=== PATIENT | male | born 1990 | race Caucasian/White ===

== ENCOUNTER 2018-07-17 19:42 | Emergency (ER) | payer BC ==
[2018-07-17 19:59] VITALS: BP 168/89; PULSE 83; TEMP 98.1; BMI 29.0
--- NOTE | 2018-07-17 20:00 | PDOC ---
Rapid Medical Evaluation Chief Complaint: Pain Time Seen by Provider: 07/17/18 19:54 Medical Evaluation: Allergies Allergy/AdvReac Type Severity Reaction Status Date / Time No Known Allergies Allergy Verified 02/08/16 21:14 07/17/18 19:56 I have performed a brief in-person evaluation of this patient. The patient presents with a chief complaint of:rlq PAIN X 2 DAYS, INTERMITTANT , went to [facility] for eval and was sent here for eval of Abd and possible Appy Pertinent physical exam findings: pale , no tenderness./ rebound/ guarding I have ordered the following: UA The patient will proceed to the ED for further evaluation. 07/17/18 19:56
--- NOTE | 2018-07-17 21:29 | PDOC ---
History of Present Illness - History of Present Illness Initial Comments: 07/17/18 21:29 The patient is a 28 year old male, with no past medical history, who presents to the emergency department with right upper abdominal pain and right flank pain for about 3 days. The patient states he developed 5/10, intermittent pain which is localized to his right upper quadrant and right lateral ribs. He reports pain exacerbation with palpation of his right upper quadrant just under her ribs. He denies any injury or trauma. 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 He does report doing push-ups yesterday, but states the right upper abdominal pain was already present. He states he went to urgent care prior to ED arrival where he was found to have right lower quadrant tenderness on exam with concern for appendicitis. The patient, however, reportedly urinated upon ED arrival and denies any right lower abdominal pain. He denies any other exacerbating or alleviating factors of pain. He denies use of OTC medications for pain. He denies any other complaints. The patient denies chest pain, shortness of breath, headache and dizziness. The patient denies fever, chills, nausea, vomit, diarrhea and constipation. The patient denies dysuria, frequency, urgency and hematuria. Allergies: NKDA Past surgical history: none reported Social Hx: denies ETOH or tobacco use <Becky Simeon - Last Filed: 07/17/18 21:29> - General History Source: Patient Exam Limitations: No Limitations <Negra Lucas - Last Filed: 07/17/18 22:31> - General Chief Complaint: Pain Stated Complaint: ABDOMINAL PAIN Time Seen by Provider: 07/17/18 19:54 Past History <Becky Simeon - Last Filed: 07/17/18 21:29> - Past Medical History COPD: No - Suicide/Smoking/Psychosocial Hx Smoking History: Never smoked Have you smoked in the past 12 months: No Information on smoking cessation initiated: No Hx Alcohol Use: No Drug/Substance Use Hx: No Substance Use Type: None <Negra Lucas - Last Filed: 07/17/18 22:31> - Past Medical History Allergies/Adverse Reactions: Allergies Allergy/AdvReac Type Severity Reaction Status Date / Time No Known Allergies Allergy Verified 07/17/18 19:59 Home Medications: Ambulatory Orders Betamethasone Dipropionate [Diprosone 0.05% Ointment -] 1 applic TP DAILY #1 tube 02/08/16 Review of Systems - Review of Systems Able to Perform ROS?: Yes Comments:: 07/17/18 21:29 CONSTITUTIONAL: Absent: fever, no chills, no fatigue EYES: Absent: visual changes ENT: Absent: ear pain, no sore throat CARDIOVASCULAR: Absent: chest pain, no palpitations RESPIRATORY: Absent: cough, no SOB GASTROINTESTINAL: (+) right upper abdominal pain, Absent: no nausea, no vomiting, no constipation , no diarrhea GENITOURINARY: Absent: dysuria, no frequency, no hematuria MUSCULOSKELETAL: Absent: back pain, no arthralgia, no myalgia SKIN: Absent: rash NEURO: Absent: headache <Becky Simeon - Last Filed: 07/17/18 21:29> *Physical Exam - Vital Signs Last Vital Signs Temp Pulse Resp BP Pulse Ox 98.1 F 83 18 168/89 100 07/17/18 19:56 07/17/18 19:56 07/17/18 19:56 07/17/18 19:56 07/17/18 19:56 - Physical Exam Comments: 07/17/18 21:29 GENERAL: The patient is in no acute distress. HEAD: Normal with no signs of trauma. EYES: PERRLA, EOMI, sclera anicteric, conjunctiva clear. ENT: Ears normal, nares patent, oropharynx clear without exudates. Moist mucous membranes. NECK: Normal range of motion, supple without lymphadenopathy, JVD, or masses. LUNGS: Breath sounds equal, clear to auscultation bilaterally. No wheezes, and no crackles. HEART:Regular rate and rhythm, normal S1 and S2 without murmur, rub or gallop. ABDOMEN: (+) mild RUQ tenderness on palpation. No reproducible lower abdominal tenderness. Soft, normoactive bowel sounds. No guarding, no rebound. No masses palpable. EXTREMITIES: Normal range of motion, no edema. No clubbing or cyanosis. No erythema, or tenderness. NEUROLOGICAL: Cranial nerves II through XII grossly intact. Normal speech. No focal neurological deficits. MUSCULOSKELETAL: Back non-tender to palpation, no CVA tenderness SKIN: Warm, Dry, normal turgor, no rashes or lesions noted. <Becky Simeon - Last Filed: 07/17/18 21:29> - Vital Signs Last Vital Signs Temp Pulse Resp BP Pulse Ox 98.1 F 83 18 168/89 100 07/17/18 19:56 07/17/18 19:56 07/17/18 19:56 07/17/18 19:56 07/17/18 19:56 <Negra Lucas - Last Filed: 07/17/18 22:31> Moderate Sedation - Procedure Monitoring Vital Signs: Procedure Monitoring Vital Signs Temperature 98.1 F 07/17/18 19:56 Pulse Rate 83 07/17/18 19:56 Respiratory Rate 18 07/17/18 19:56 Blood Pressure 168/89 07/17/18 19:56 O2 Sat by Pulse Oximetry (%) 100 07/17/18 19:56 <Becky Simeon - Last Filed: 07/17/18 21:29> - Procedure Monitoring Vital Signs: Procedure Monitoring Vital Signs Temperature 98.1 F 07/17/18 19:56 Pulse Rate 83 07/17/18 19:56 Respiratory Rate 18 07/17/18 19:56 Blood Pressure 168/89 07/17/18 19:56 O2 Sat by Pulse Oximetry (%) 100 07/17/18 19:56 <Negra Lucas - Last Filed: 07/17/18 22:31> Medical Decision Making - Medical Decision Making 07/17/18 21:34 Mr Montoya is an otherwise healthy 28 yo M sent in to the ER for evaluation of abdominal pain He has noted Right upper abdominal pain which he describes as painful These symptoms began 3 days prior to arrival in the ER No associated fevers or chills No nausea, vomiting, diarrhea No chest pain No shortness of breath, recent travel, lower extremity edema No prior episodes like this No direct trauma to the area No rash Pt works in [employer], lifts heavy things all the time Does not recall doing any thing particularly strenuous Pt went to the Urgent care because the pain had not resolved (he has not tried anti inflammatories) and was sent to the ER for evaluation for appendicitis Pt tells me that when the doctor examined him at the urgent care, he had right lower abdominal tenderness Upon arrival to the ER here, he urinated and noted that his abdominal pain resolved No dysuria No hematuria No CVA tenderness Pain worsens when patient slightly bends to the right or the area in the right upper abdomen is palpated ON examination A&O x 3 RRR CTA, pt has normal breath sounds bilaterally, no diminished lower breath sounds NO lower abdominal tenderness, no guarding, no rebound Pt has right side tenderness, no guarding no rebound, Lion sign negative No CVA tenderness Pt is able to jump with no difficulty or pain No rash noted No midline spine tenderness DD includes: biliary colic, renal colic, musculoskeletal pain, appendicitis is possible but unlikely, PE Would do Labs, CT abd and pelvis I have had a long conversation with this patient regarding my suspicion about appendicitis (low but it is still technically possible) The only way to rule it out is labs and CT Pt not inclined to stay for any additional work up We have had a long conversation about what to look out for - systemic signs of illness, abdominal pain, the possibility of a ruptured appendicitis and what the outcome would be from this. We have also reviewed the other causes of his symptoms (including biliary colic , renal colic, musculoskeletal pain) We have reviewed a possible strategy of patient starting motrin for pain and re assessing his symptoms Pt would prefer to do this than to be worked up here today Will schedule patient for a follow up call tomorrow Pt has seen Dr Madrigal in the past, would prefer to follow up with her <Negra Lucas - Last Filed: 07/17/18 22:31> *DC/Admit/Observation/Transfer - Attestations Scribe Attestion: 07/17/18 21:30 Documentation prepared by Becky Simeon, acting as medical transcription radiology for Negra Lucas MD <Becky Simeon - Last Filed: 07/17/18 21:29> - Discharge Dispostion Decision to Admit order: No <Negra Lucas - Last Filed: 07/17/18 22:31> Diagnosis at time of Disposition: Abdominal pain Qualifiers: Abdominal location: right upper quadrant Qualified Code(s): R10.11 - Right upper quadrant pain - Discharge Dispostion Disposition: HOME Condition at time of disposition: Stable - Patient Instructions Printed Discharge Instructions: DI for Abdominal Pain-Adult Additional Instructions: Mr Montoya Thank you for coming in to the ER today I understand your hesitation to be worked up in the ER right now Here's what I want you to look out for - fevers, chill, nausea, vomiting, inability to eat, diarrhea, pain that does not go away and/or worsens, shortness of breath, or chest pain. IF you have those symptoms, come back to the ER. We want to see you again. Her's what we can try for now - Motrin 600mg every 8 hours (with food or milk) for pain, Robaxin You can follow up with your primary care physician within 1 week if things improve Thank you for allowing us to participate in your care - Post Discharge Activity Forms/Work/School Notes: Back to Work
== END 2018-07-17 21:47 | disposition home or self-care (01) ==
LOC: JER 19:42
DX: R10.11 Right upper quadrant pain (principal)
CPT/HCPCS: 99281-25

== ENCOUNTER 2019-01-29 17:18 | Emergency (ER) | payer BC ==
--- NOTE | 2019-01-29 17:33 | PDOC ---
Rapid Medical Evaluation Time Seen by Provider: 01/29/19 17:26 Medical Evaluation: Allergies Allergy/AdvReac Type Severity Reaction Status Date / Time No Known Allergies Allergy Verified 07/17/18 19:59 01/29/19 17:27 Patient complains of: headache and palpitations since this afternoon, episodic anxiety, denies fever drug use Patient on brief exam: tachy at 140, Patient ordered for: labs, ekg,ivf, ua, utox, iv tylenol Patient to proceed to the ED Discharge Disposition - Diagnosis Palpitation - Discharge Dispostion Disposition: HOME Condition at time of disposition: Improved - Referrals Referrals: Indira Madrigal MD [Primary Care Provider] - - Patient Instructions Printed Discharge Instructions: DI for Anxiety -- Adult Additional Instructions: The cause of your symptoms might be anxiety related but you need further evaluation by your PMD You labs were all normal today Return to ED as needed - Post Discharge Activity
[2019-01-29] MEDS ORDERED: SODIUM CHLORIDE 1,000 ML IV STA (17:34)
[2019-01-29] MEDS ORDERED: ACETAMINOPHEN 1000 MG/100 ML VIAL (NON FORMULARY) IVPB ONE (17:34)
[2019-01-29 17:36] VITALS: BMI 28.9
--- NOTE | 2019-01-29 17:49 | PDOC ---
History of Present Illness - General Chief Complaint: Palpitations Stated Complaint: PALPITATIONS Time Seen by Provider: 01/29/19 17:26 History Source: Patient - History of Present Illness Timing/Duration: other (this evening) Associated Symptoms: denies: chest pain, diaphoresis, fever/chills, nausea/ vomiting, shortness of breath, weakness Past History - Past Medical History Allergies/Adverse Reactions: Allergies Allergy/AdvReac Type Severity Reaction Status Date / Time No Known Allergies Allergy Verified 07/17/18 19:59 Home Medications: Ambulatory Orders Betamethasone Dipropionate [Diprosone 0.05% Ointment -] 1 applic TP DAILY #1 tube 02/08/16 COPD: No - Suicide/Smoking/Psychosocial Hx Smoking History: Never smoked Have you smoked in the past 12 months: No Information on smoking cessation initiated: No Hx Alcohol Use: No Drug/Substance Use Hx: No Substance Use Type: None Review of Systems - Review of Systems Constitutional: No: Chills, Fever Respiratory: No: Shortness of Breath Cardiac (ROS): Yes: Palpitations. No: Chest Pain, Lightheadedness, Syncope *Physical Exam - Vital Signs Last Vital Signs Temp Pulse Resp BP Pulse Ox 97.9 F 140 H 17 163/90 98 01/29/19 17:30 01/29/19 17:30 01/29/19 17:30 01/29/19 17:30 01/29/19 17:30 - Physical Exam Comments: 01/29/19 18:08 appears mildly anxious General Appearance: Yes: Appropriately Dressed HEENT: positive: Normal Voice Neck: positive: Supple Respiratory/Chest: positive: Lungs Clear, Normal Breath Sounds. negative: Respiratory Distress Cardiovascular: positive: S1, S2 Gastrointestinal/Abdominal: positive: Normal Bowel Sounds, Soft. negative: Tender, Distended, Guarding, Rebound Integumentary: positive: Dry, Warm Neurologic: positive: Fully Oriented, Alert, Normal Mood/Affect Medical Decision Making - Medical Decision Making 01/29/19 17:48 28-year-old healthy male, no significant history here with palpitations that started this afternoon while sitting home with his family. States he also felt anxious at the time. Symptoms have since improved. No shortness of breath, chest pain, numbness or tingling. Has had similar symptom in the past that self resolved. Describes himself as a nervous person and admits to feeling stressed out at home. Also admits to constantly googling his symptoms. No official diagnosis of anxiety and not on meds. No SI/HI. Patient denies any illicit drug use. No obvious risk factors for DVT, PE. Of note, patient states he is currently being worked up by PMD for lower abdominal pain that's been on and off x several days. No pain currently in ED and denies change in BM , n/v/f/c or dysuria. Lab work this am was normal on chart review. States he is scheduled to see a optimization consultant in the a.m. and also has CT abdomen and pelvis scheduled in 2 days. See exam Palpitations Recurrent ? anxiety component, very low suspicion for cardiac or PE Out-pt labs this am for intermittent abd pain, normal on chart review including TSH, CBC and Chem Pt tachy to 140 at triage and appears very anxious here EKG done at triage shows sinus tachy @ 108 BPM -pt offered anxiolytic in ER but declines at this time -will send dimer and utox now -anticipate dc w/ PMD and possibly cards f/u 01/29/19 19:10 Labs wnl. Rpt HR now 101 with no intervention. Pt declines to wait for utox. Feels well going home to f/u with PMD this week *DC/Admit/Observation/Transfer Diagnosis at time of Disposition: Palpitation - Discharge Dispostion Disposition: HOME Condition at time of disposition: Improved - Referrals Referrals: Indira Madrigal MD [Primary Care Provider] - - Patient Instructions Printed Discharge Instructions: DI for Anxiety -- Adult Additional Instructions: The cause of your symptoms might be anxiety related but you need further evaluation by your PMD You labs were all normal today Return to ED as needed - Post Discharge Activity
[2019-01-29 18:45] VITALS: BP 145/74; PULSE 101; TEMP 98.6
--- NOTE | 2019-01-29 19:23 | PDOC ---
*Physical Exam - Vital Signs Last Vital Signs Temp Pulse Resp BP Pulse Ox 98.6 F 101 H 16 145/74 99 01/29/19 18:44 01/29/19 18:44 01/29/19 18:44 01/29/19 18:44 01/29/19 18:44 ED Treatment Course - ADDITIONAL ORDERS Additional order review: Laboratory Results 01/29/19 01/29/19 18:00 18:00 D-Dimer 235 Creatine Kinase 94 Troponin I < 0.02 - Medications Given in the ED: ED Medications Discontinued Medications Generic Name Dose Route Start Last Admin Trade Name Jamar PRN Reason Stop Dose Admin Acetaminophen 1,000 mg 01/29/19 17:34 01/29/19 18:44 Ofirmev Injection - IVPB 01/29/19 17:35 Not Given ONCE ONE Sodium Chloride 1,000 mls @ 1,000 mls/hr 01/29/19 17:34 01/29/19 18:44 Normal Saline - IV 01/29/19 18:33 Not Given ASDIR STA Medical Decision Making - Medical Decision Making 01/29/19 19:23 Pt seen by Midlevel Provider under my direct supervision Ancillary studies reviewed I agree with plan as outlined by Midlevel Provider *DC/Admit/Observation/Transfer Diagnosis at time of Disposition: Palpitation - Discharge Dispostion Disposition: HOME Condition at time of disposition: Improved - Referrals Referrals: Indira Madrigal MD [Primary Care Provider] - - Patient Instructions Printed Discharge Instructions: DI for Anxiety -- Adult Additional Instructions: The cause of your symptoms might be anxiety related but you need further evaluation by your PMD You labs were all normal today Return to ED as needed - Post Discharge Activity
[2019-01-29 21:11] LABS: COCAINE, UR NEGATIVE ng/ml (CUTOFF=300); METHADONE, UR NEGATIVE ng/ml (CUTOFF=300); OPIATES, URI NEGATIVE ng/ml (CUTOFF=300); PHENCYCLIDINE,URINE NEGATIVE ng/ml (CUTOFF=25); URINE AMPHETAMINES NEGATIVE ng/ml (CUTOFF=500); URINE BARBITURATES NEGATIVE ng/ml (CUTOFF=200); URINE BENZODIAZEPINES NEGATIVE ng/ml (CUTOFF=200)
--- NOTE | 2019-01-30 08:07 | EKG ---
Test Reason : Blood Pressure : / mmHG Vent. Rate : 108 BPM Atrial Rate : 108 BPM P-R Int : 170 ms QRS Dur : 106 ms QT Int : 356 ms P-R-T Axes : 047 032 033 degrees QTc Int : 477 ms SINUS TACHYCARDIA POSSIBLE LEFT ATRIAL ENLARGEMENT BORDERLINE ECG NO PREVIOUS ECGS AVAILABLE Confirmed by ROSELYN LANE, LINDA ([id number]) on 01/30/2019 8:07:17 AM Referred By: Confirmed By:LINDA DEMPSEY MD
== END 2019-01-29 19:19 | disposition home or self-care (01) ==
LOC: JER 17:18
DX: R00.2 Palpitations (principal)
CPT/HCPCS: 36415; 80053; 80076; 80307; 81003; 82550; 82977; 83036; 84439; 84443; 84484; 85027; 85379; 87086; 93005; 93010; 99282-25

== ENCOUNTER 2019-03-31 12:25 | Emergency (ER) | payer BC, OTHER ==
[2019-03-31 12:36] VITALS: BP 126/77; PULSE 83; TEMP 97.9; BMI 26.5
--- NOTE | 2019-03-31 13:21 | PDOC ---
History of Present Illness - General Chief Complaint: Sore Throat Stated Complaint: SORE THROAT / CHEST PRESSURE Time Seen by Provider: 03/31/19 12:35 - History of Present Illness Initial Comments: 03/31/19 13:21 CHIEF COMPLAINT: multiple HISTORY OF PRESENT ILLNESS: 28 yo M with hx of anxiety presents to fast track with multiple complaints. Patient reports "having to clear my throat a lot" and that he has discomfort to his left chest wall with palpation and deep breathing. He states he was recently seen by Dr. Zhong and had an endoscopy and put on famotidine. He also is concerned about "these webster on my back" after he was sitting up against a tree this weekend. No recent travel or sick contacts. PAST MEDICAL HISTORY: Denies past medical history FAMILY HISTORY: Denies SOCIAL HISTORY: Denies tobacco, alcohol, illicit drug use. SURGICAL HISTORY: Denies ALLERGIES: No known drug allergies REVIEW OF SYSTEMS General/Constitutional: Denies fever or chills. Denies weakness, weight change. HEENT: Denies change in vision. Denies ear pain or discharge. Denies sore throat. Cardiovascular: Denies chest pain or shortness of breath. Respiratory: Denies cough, wheezing, or hemoptysis. Gastrointestinal: Denies nausea, vomiting, diarrhea or constipation. Denies rectal bleeding. Genitourinary: Denies dysuria, frequency, or change in urination. Musculoskeletal: Denies joint or muscle swelling or pain. Denies neck or back pain. Skin and breasts: Denies rash or easy bruising. Neurologic: Denies headache, vertigo, loss of consciousness, or loss of sensation. Psychiatric: Denies depression or anxiety. Endocrine: Denies increased thirst. Denies abnormal weight change. Hematologic/Lymphatic: Denies anemia, easy bleeding, or history of blood clots. Allergic/Immunologic: Denies hives or skin allergy. Denies latex allergy. PHYSICAL EXAM General Appearance: Anxious. Appropriately dressed. No apparent distress, no intoxication. HEENT: EOMI, PERRLA, normal ENT inspection, normal voice, TMs normal, pharynx normal. No conjunctival pallor. No photophobia, scleral icterus. Neck: Supple. Trachea midline. No tenderness, rigidity, carotid bruit, stridor , lymphadenopathy, or thyromegaly. Respiratory/Chest: Lungs CTAB. No shortness of breath, chest tenderness, respiratory distress, accessory muscle use. No crackles, rales, rhonchi, stridor , wheezing, dullness Cardiovascular: RRR. S1, S2. No JVD, murmur, bradycardia, tachycardia. Vascular Pulses: Dorsalis-Pedis (R): 2+, Dorsalis-Pedis (L): 2+ Gastrointestinal/Abdominal: Normal bowel sounds. Abdomen soft, non-distended. No tenderness or rebound tenderness. No organomegaly, pulsatile mass, guarding , hernia, hepatomegaly, splenomegaly. Lymphatic: No adenopathy, tenderness. Musculoskeletal/Extremities: Normal inspection. FROM of all extremities, normal capillary refill. Pelvis Stable. No CVA tenderness. No tenderness to extremities, pedal edema, swelling, erythema or deformity. Integumentary: Appropriate color, dry, warm. No cyanosis, erythema, jaundice or rash Neurologic: book illustrator II-XII intact. Fully oriented, alert. Appropriate mood/affect. Motor strength 5/5. No appreciable EOM palsy, facial droop or sensory deficit. 03/31/19 13:31 03/31/19 15:32 Past History - Past Medical History Allergies/Adverse Reactions: Allergies Allergy/AdvReac Type Severity Reaction Status Date / Time No Known Allergies Allergy Verified 03/31/19 12:30 Home Medications: Ambulatory Orders Betamethasone Dipropionate [Diprosone 0.05% Ointment -] 1 applic TP DAILY #1 tube 02/08/16 Hydroxyzine HCl 25 mg PO TID PRN #20 tablet 03/31/19 Ibuprofen [Motrin -] 600 mg PO TID #21 tablet 03/31/19 COPD: No - Immunization History Immunization Up to Date: Yes - Suicide/Smoking/Psychosocial Hx Smoking History: Never smoked Have you smoked in the past 12 months: No Hx Alcohol Use: No Drug/Substance Use Hx: No Substance Use Type: None *Physical Exam - Vital Signs Last Vital Signs Temp Pulse Resp BP Pulse Ox 97.9 F 83 18 126/77 99 03/31/19 12:31 03/31/19 12:31 03/31/19 12:31 03/31/19 12:31 03/31/19 12:31 Medical Decision Making - Medical Decision Making 03/31/19 13:33 28 yo M with hx of anxiety presents to fast track with multiple complaints. patient is very anxious appearing and states "i'm an anxious person" and that he has been googling his symptoms a lot -hydroxyzine *DC/Admit/Observation/Transfer Diagnosis at time of Disposition: Anxiety - Discharge Dispostion Disposition: HOME Condition at time of disposition: Stable Decision to Admit order: No - Prescriptions Prescriptions: Hydroxyzine HCl 25 mg PO TID PRN #20 tablet PRN Reason: Anxiety Ibuprofen [Motrin -] 600 mg PO TID #21 tablet - Referrals Referrals: Callie Garza MD [Primary Care Provider] - - Patient Instructions Printed Discharge Instructions: DI for Anxiety -- Adult Additional Instructions: Please take medications as prescribed. Follow up with your primary care provider if symptoms persist. - Post Discharge Activity
[2019-03-31] MEDS ORDERED: hydrOXYzine HCL 50 MG TABLET PO ONE (13:31)
[2019-03-31] MEDS ORDERED: hydrOXYzine HCL 25 MG TABLET (FP) PO ONE (13:37)
== END 2019-03-31 13:41 | disposition home or self-care (01) ==
LOC: JERFT 12:25
DX: F41.9 Anxiety disorder, unspecified (principal)
CPT/HCPCS: 99281-25

== ENCOUNTER 2019-05-06 20:34 | Emergency (ER) | payer BC ==
[2019-05-06 20:37] VITALS: BP 134/87; PULSE 103; TEMP 97.9; BMI 26.6
--- NOTE | 2019-05-06 22:29 | PDOC ---
History of Present Illness - General Chief Complaint: Chest Pain Stated Complaint: CHEST PAIN Time Seen by Provider: 05/06/19 22:21 History Source: Patient - History of Present Illness Initial Comments: 05/06/19 22:23 28 year old male c/o chest pain " for awhile" seen by Dr. Garza s/p stress showed slight St depression of the lateral leads with activity. had a normal echo recently. patient reports that he is nervous about the change and was looking up causes on the internet. denies nausea, diaphoresis, weakness denies past medical history, no sudden deaths in family, EOE Past History - Past Medical History Allergies/Adverse Reactions: Allergies Allergy/AdvReac Type Severity Reaction Status Date / Time No Known Allergies Allergy Verified 05/06/19 20:36 Home Medications: Ambulatory Orders Betamethasone Dipropionate [Diprosone 0.05% Ointment -] 1 applic TP DAILY #1 tube 02/08/16 Hydroxyzine HCl 25 mg PO TID PRN #20 tablet 03/31/19 Ibuprofen [Motrin -] 600 mg PO TID #21 tablet 03/31/19 COPD: No - Immunization History Immunization Up to Date: Yes - Suicide/Smoking/Psychosocial Hx Smoking History: Never smoked Have you smoked in the past 12 months: No Hx Alcohol Use: No Drug/Substance Use Hx: No Substance Use Type: None Review of Systems - Review of Systems Able to Perform ROS?: Yes Is the patient limited Thai proficient: No Constitutional: No: Symptoms Reported, See HPI, Chills, Diaphoresis, Fever, Loss of Appetite, Malaise, Night Sweats, Weakness, Weight Stable, Unintentional Wgt. Loss, Unexplained wgt Loss, Other Cardiac (ROS): Yes: Chest Pain *Physical Exam - Vital Signs Last Vital Signs Temp Pulse Resp BP Pulse Ox 97.9 F 103 H 18 134/87 97 05/06/19 20:36 05/06/19 20:36 05/06/19 20:36 05/06/19 20:36 05/06/19 20:36 - Physical Exam General Appearance: Yes: Appropriately Dressed Respiratory/Chest: positive: Chest Tender, Lungs Clear, Normal Breath Sounds Cardiovascular: positive: Regular Rhythm, Regular Rate Gastrointestinal/Abdominal: positive: Normal Bowel Sounds, Soft. negative: Tender Integumentary: positive: Normal Color, Dry, Warm Neurologic: positive: advertising sales manager II-XII NML intact, Fully Oriented, Alert, Normal Mood/ Affect Heart Score/ECG Review - History History: Slightly suspicious - Electrocardiogram EKG: Normal - Age Age: </= 45 - Risk Factors Based on the list above the patient has:: No risk factors known - Troponin Troponin: </= normal limit - Score Heart Score - Total: 0 - ECG Intrepretation Rhythm: Regular Rhythm Comment:: 05/07/19 00:24 possible sinus rhythm with sinus arrythmia ED Treatment Course - LABORATORY CBC & Chemistry Diagram: 05/06/19 23:20 05/06/19 23:20 - ADDITIONAL ORDERS Additional order review: Laboratory Results 05/06/19 05/06/19 05/06/19 23:20 23:20 23:20 PT with INR 12.80 INR 1.08 Sodium 141 Potassium 3.8 Chloride 104 Carbon Dioxide 31 Anion Gap 7 L BUN 18.9 H Creatinine 0.9 Est GFR (CKD-EPI)AfAm 133.30 Est GFR (CKD-EPI)NonAf 115.01 Random Glucose 93 Calcium 9.7 Total Bilirubin 0.9 AST 16 ALT 32 Alkaline Phosphatase 52 Creatine Kinase 70 Troponin I < 0.02 Total Protein 7.7 Albumin 4.4 05/06/19 23:20 RBC 5.37 MCV 88.9 MCHC 34.2 RDW 12.8 MPV 8.6 Neutrophils % 69.7 Lymphocytes % 22.1 Monocytes % 6.1 Eosinophils % 1.3 Basophils % 0.8 - RADIOLOGY Radiology Studies Ordered: Category Date Time Status CHEST PA & LAT [RAD] Stat Radiology 05/06/19 22:38 Taken Medical Decision Making - Medical Decision Making Chest pain P: labs chest xray cardiac labs 05/07/19 00:31 patient has an appointment with cardiology tomorrow. no acute findings *DC/Admit/Observation/Transfer Diagnosis at time of Disposition: Atypical chest pain - Discharge Dispostion Disposition: HOME - Referrals - Patient Instructions Printed Discharge Instructions: DI for Atypical Chest Pain Additional Instructions: please follow up with cardiology as per schedule. return to the ER for any worsening symptoms - Post Discharge Activity Forms/Work/School Notes: Back to Work
--- NOTE | 2019-05-06 22:31 | PDOC ---
*Physical Exam - Vital Signs Last Vital Signs Temp Pulse Resp BP Pulse Ox 97.9 F 103 H 18 134/87 97 05/06/19 20:36 05/06/19 20:36 05/06/19 20:36 05/06/19 20:36 05/06/19 20:36 ED Treatment Course - LABORATORY CBC & Chemistry Diagram: 05/06/19 23:20 05/06/19 23:20 Medical Decision Making - Medical Decision Making 05/06/19 22:30 Patient seen by the advanced practice provider under my direct supervision. Ancillary testing reviewed as necessary. I agree with plan as outlined by the advanced practice provider. *DC/Admit/Observation/Transfer Diagnosis at time of Disposition: Atypical chest pain - Discharge Dispostion Disposition: HOME - Referrals - Patient Instructions Printed Discharge Instructions: DI for Atypical Chest Pain Additional Instructions: please follow up with cardiology as per schedule. return to the ER for any worsening symptoms - Post Discharge Activity Forms/Work/School Notes: Back to Work
[2019-05-06 23:33] LABS: BASO % 0.8 % (0-2.0); EOS % 1.3 % (0-4.5); HEMATOCRIT 47.7 % (35.4-49); HEMOGLOBIN 16.3 GM/dL (11.7-16.9); LYMPH % 22.1 % (8-40); MCH 30.4 pg (25.7-33.7); MCHC 34.2 g/dl (32.0-35.9); MEAN CELL VOLUME 88.9 fl (80-96); MEAN PLT VOLUME 8.6 fl (7.5-11.1); MONO % 6.1 % (3.8-10.2); NEUT % 69.7 % (42.8-82.8); PLATELET COUNT 204 K/MM3 (134-434); RBC 5.37 M/mm3 (4.00-5.60); RDW 12.8 % (11.9-15.9); WHITE BLOOD COUNT 9.2 K/mm3 (4.0-10.0)
[2019-05-06 23:47] LABS: INR 1.08 (0.83-1.09); PROTHROMBIN TIME (PATIENT) 12.8 SEC (9.7-13.0)
[2019-05-06 23:53] LABS: ALBUMIN 4.4 g/dl (3.4-5.0); BILIRUBIN,TOTAL 0.9 mg/dL (0.2-1); BLOOD UREA NITROGEN 18.9 mg/dL (7-18); CALCIUM 9.7 mg/dL (8.5-10.1); CREATININE 0.9 mg/dL (0.55-1.3); POTASSIUM 3.8 mmol/L (3.5-5.1); TOT PROT 7.7 g/dl (6.4-8.2)
--- NOTE | 2019-05-07 10:58 | EKG ---
Test Reason : Blood Pressure : / mmHG Vent. Rate : 099 BPM Atrial Rate : 099 BPM P-R Int : 158 ms QRS Dur : 100 ms QT Int : 354 ms P-R-T Axes : 066 056 048 degrees QTc Int : 454 ms NORMAL SINUS RHYTHM WITH SINUS ARRHYTHMIA POSSIBLE LEFT ATRIAL ENLARGEMENT BORDERLINE ECG WHEN COMPARED WITH ECG OF 29-JAN-2019 17:35, NO SIGNIFICANT CHANGE WAS FOUND Confirmed by Quang Rojas ([id number]) on 05/07/2019 10:58:15 AM Referred By: Confirmed By:Quang Rojas
== END 2019-05-07 01:05 | disposition home or self-care (01) ==
LOC: JER 20:34 → JERFT 20:34 → JER 05-07 01:05
DX: R07.9 Chest pain, unspecified (principal)
CPT/HCPCS: 36415; 71046-TC-FY; 80053; 82550; 84484; 85025; 85610; 93005; 93010; 99283-25

== ENCOUNTER 2019-08-13 12:24 | Emergency (ER) | payer BC ==
[2019-08-13 12:39] VITALS: TEMP 98.5; BMI 26.6
[2019-08-13] MEDS ORDERED: SODIUM CHLORIDE 1,000 ML IV STA (13:05)
[2019-08-13 14:15] VITALS: BP 137/75; PULSE 103
[2019-08-13 14:28] LABS: ALBUMIN 4.4 g/dl (3.4-5.0); BILIRUBIN,TOTAL 1.6 mg/dL (0.2-1); BLOOD UREA NITROGEN 13.9 mg/dL (7-18); CALCIUM 9.8 mg/dL (8.5-10.1); CREATININE 0.7 mg/dL (0.55-1.3); POTASSIUM 4.2 mmol/L (3.5-5.1); TOT PROT 7.8 g/dl (6.4-8.2)
[2019-08-13 14:42] LABS: BASO % 0.4 % (0-2.0); EOS % 0.9 % (0-4.5); LYMPH % 15.1 % (8-40); MCH 30.4 pg (25.7-33.7); MCHC 33.9 g/dl (32.0-35.9); MEAN CELL VOLUME 89.6 fl (80-96); MEAN PLT VOLUME 8.9 fl (7.5-11.1); MONO % 5.5 % (3.8-10.2); NEUT % 78.1 % (42.8-82.8); PLATELET COUNT 224 K/MM3 (134-434); RBC 5.58 M/mm3 (4.00-5.60); RDW 12.9 % (11.9-15.9); WHITE BLOOD COUNT 9.8 K/mm3 (4.0-10.0)
--- NOTE | 2019-08-13 14:58 | PDOC ---
History of Present Illness - General Chief Complaint: Pain Stated Complaint: DIZZNESS Time Seen by Provider: 08/13/19 12:49 History Source: Patient Exam Limitations: No Limitations Past History - Travel Traveled outside of the country in the last 30 days: No Close contact w/someone who was outside of country & ill: No - Past Medical History Allergies/Adverse Reactions: Allergies Allergy/AdvReac Type Severity Reaction Status Date / Time No Known Allergies Allergy Verified 08/13/19 12:34 Home Medications: Ambulatory Orders Betamethasone Dipropionate [Diprosone 0.05% Ointment -] 1 applic TP DAILY #1 tube 02/08/16 Hydroxyzine HCl 25 mg PO TID PRN #20 tablet 03/31/19 Ibuprofen [Motrin -] 600 mg PO TID #21 tablet 03/31/19 COPD: No - Immunization History Immunization Up to Date: Yes - Psycho Social/Smoking Cessation Hx Smoking History: Never smoked Have you smoked in the past 12 months: No Information on smoking cessation initiated: No Hx Alcohol Use: No Drug/Substance Use Hx: No Substance Use Type: None Review of Systems - Review of Systems Able to Perform ROS?: Yes Comments:: 08/13/19 17:58 CONSTITUTIONAL: Absent: fever, chills, diaphoresis, generalized weakness, malaise, loss of appetite HEENT: Absent: rhinorrhea, nasal congestion, throat pain, throat swelling, difficulty swallowing, mouth swelling, ear pain, eye pain, visual Changes CARDIOVASCULAR: Absent: chest pain, loss of consciousness, palpitations, irregular heart rate, peripheral edema RESPIRATORY: Absent: cough, shortness of breath, dyspnea with exertion, orthopnea, wheezing, stridor, hemoptysis GASTROINTESTINAL: Absent: abdominal pain, abdominal distension, nausea, vomiting, diarrhea, constipation, melena, hematochezia GENITOURINARY: Absent: dysuria, frequency, urgency, hesitancy, hematuria, flank pain, genital pain MUSCULOSKELETAL: Absent: myalgia, arthralgia, joint swelling SKIN: Absent: rash, itching, pallor NEUROLOGIC: Present: dizziness Absent: headache, focal weakness or paresthesias, unsteady gait, seizure, mental status changes, bladder or bowel incontinence PSYCHIATRIC: Absent: anxiety, depression, suicidal or homicidal ideation, hallucinations. Is the patient limited Kiswahili proficient: No *Physical Exam - Vital Signs Last Vital Signs Temp Pulse Resp BP Pulse Ox 98.5 F 103 H 18 137/75 98 08/13/19 12:35 08/13/19 14:14 08/13/19 12:35 08/13/19 14:14 08/13/19 14:14 - Physical Exam 08/13/19 18:00 GENERAL: Well developed, well nourished. Awake and alert. No acute distress. HEENT: Normocephalic, atraumatic. PERRLA, EOMI. No conjunctival pallor. Sclera are non- icteric. Moist mucous membranes. Oropharynx is clear. NECK: Supple. Full ROM. No JVD. Carotid pulses 2+ and symmetric, without bruits. No thyromegaly. No lymphadenopathy. CARDIOVASCULAR: Regular rate and rhythm. No murmurs, rubs, or gallops. Distal pulses are 2+ and symmetric. PULMONARY: No evidence of respiratory distress. Lungs clear to auscultation bilaterally. No wheezing, rales or rhonchi. ABDOMINAL: Soft. Non-tender. Non-distended. No rebound or guarding. No organomegaly. Normoactive bowel sounds. MUSCULOSKELETAL Normal range of motion at all joints. No bony deformities or tenderness. No CVA tenderness. EXTREMITIES: No cyanosis. No clubbing. No edema. No calf tenderness. SKIN: Warm and dry. Normal capillary refill. No rashes. No jaundice. NEUROLOGICAL: Alert, awake, appropriate. Cranial nerves 2-12 intact. No deficits to light touch and temperature in face, upper extremities and lower extremities. No motor deficits in the in face, upper extremities and lower extremities. Normoreflexic in the upper and lower extremities. Normal speech. Toes are down- going bilaterally. Gait is normal without ataxia. PSYCHIATRIC: Cooperative. Good eye contact. Appropriate mood and affect. ED Treatment Course - LABORATORY CBC & Chemistry Diagram: 08/13/19 13:30 08/13/19 13:30 - ADDITIONAL ORDERS Additional order review: Laboratory Results 08/13/19 13:30 Sodium 139 Potassium 4.2 Chloride 104 Carbon Dioxide 28 Anion Gap 8 BUN 13.9 Creatinine 0.7 Est GFR (CKD-EPI)AfAm 146.77 Est GFR (CKD-EPI)NonAf 126.64 Random Glucose 87 Calcium 9.8 Total Bilirubin 1.6 H AST 27 ALT 53 Alkaline Phosphatase 52 Total Protein 7.8 Albumin 4.4 Lipase 95 08/13/19 13:30 RBC 5.58 MCV 89.6 MCHC 33.9 RDW 12.9 MPV 8.9 Neutrophils % 78.1 Lymphocytes % 15.1 D Monocytes % 5.5 Eosinophils % 0.9 Basophils % 0.4 - Medications Given in the ED: ED Medications Discontinued Medications Generic Name Dose Route Start Last Admin Trade Name Jamar PRN Reason Stop Dose Admin Sodium Chloride 1,000 mls @ 1,000 mls/hr 08/13/19 13:05 08/13/19 13:15 Normal Saline - IV 08/13/19 14:04 1,000 mls/hr ASDIR STA Administration Medical Decision Making - Medical Decision Making 08/13/19 18:01 The patient is a 29-year-old male with past medical history of anxiety, presents to the ER today for dizziness for 2 days. He states that he feels lightheaded and weak. He states that his stool has been more yellow in color and he is concerned that he is a problem with his GI tract. He admits to googling his symptoms and he is concerned he may have a candidal infection. he states this all started after he was taking metronidazole for an infection proximally 2 months ago his GI is Dr. Zhong. Denies fevers, chills, difficulty breathing, headache, weakness, dizziness, nausea, vomiting and diarrhea. A/P: Lightheadedness/dehydration Exam is overall benign. No abdominal pain. Given the patient is very concerned about the color of his stool, basic labs were ordered. H&H shows some dehydration. Bilirubin elevated at 1.6, however there is no abdominal pain on exam. Will have patient follow up with his GI doctor. Reassurance given to patient that he does not have a sachi infection stomach. Advised patient to stop using [employer] to look up his symptoms. patient has follow-up with GI on Monday. Lightheadedness most likely due to dehydration Discharge home with primary care follow-up I discussed the physical exam findings, ancillary test results and final diagnoses with the patient. I answered all of the patient's questions. The patient was satisfied with the care received and felt comfortable with the discharge plan and treatment plan. The Patient agrees to follow up with the primary care physician/specialist within 24-72 hours. Return precautions were given. Discharge - Discharge Information Problems reviewed: Yes Clinical Impression/Diagnosis: Dehydration Condition: Stable Disposition: HOME - Admission No - Follow up/Referral Referrals: Cecilia Mccarthy DO [Staff Physician] - - Patient Discharge Instructions Patient Printed Discharge Instructions: DI for Dehydration -- Adult Additional Instructions: You were evaluated for your lightheadedness today. It is most likely due to dehydration as seen on your lab work. Please drink plenty of fluids and eat a well-balanced diet. Please follow-up with the GI doctor on Monday as scheduled. Return to the ER for pain, fever, persistent diarrhea, vomiting or if you have any changes in your symptoms. - Post Discharge Activity
== END 2019-08-13 15:00 | disposition home or self-care (01) ==
LOC: JERFT 12:24
PROC: 3E0337Z Introduction of Electrolytic and Water Balance Substance into Peripheral Vein, Percutaneous Approach (ICD-10-PCS; principal; 2019-08-13)
DX: E86.0 Dehydration (principal)
CPT/HCPCS: 36415; 80053; 83690; 85025; 99282-25; J7030

== ENCOUNTER 2022-11-15 07:10 | Emergency (ER) | payer BC ==
[2022-11-15 07:25] VITALS: RESP 18; TEMP 98.9; BMI 31.0
[2022-11-15 08:52] VITALS: BP 139/93; PULSE 117
[2022-11-15] MEDS ORDERED: ERYTHROMYCIN 0.5% OPHTHALMIC OINTMENT 3.5 GM TUBE OD STA (08:55)
[2022-11-15] MEDS ORDERED: ERYTHROMYCIN 0.5% OPHTHALMIC OINTMENT 3.5 GM TUBE ONE (09:05)
== END 2022-11-15 09:13 | disposition home or self-care (01) ==
LOC: JER 07:10 → JERFT 07:10
DX: H57.89 Other specified disorders of eye and adnexa (principal); R21 Rash and other nonspecific skin eruption
CPT/HCPCS: 99283-25

== ENCOUNTER 2024-10-18 08:39 | Day surgery (SDC) | payer BC ==
[2024-10-14 16:40] VITALS: BMI 30.5
[2024-10-18 10:17] VITALS: BP 141/83; PULSE 74; RESP 18; TEMP 97.5
== END 2024-10-18 10:15 | disposition home or self-care (01) ==
LOC: FASU-ENDO 08:39
PROVIDERS: ATTEND Internal Medicine Gastroenterology
PROC: 0DB68ZX Excision of Stomach, Via Natural or Artificial Opening Endoscopic, Diagnostic (ICD-10-PCS; 2024-10-18)
PROC: 0DB48ZX Excision of Esophagogastric Junction, Via Natural or Artificial Opening Endoscopic, Diagnostic (ICD-10-PCS; 2024-10-18)
PROC: 0DB98ZX Excision of Duodenum, Via Natural or Artificial Opening Endoscopic, Diagnostic (ICD-10-PCS; principal; 2024-10-18 09:43)
DX: K29.50 Unspecified chronic gastritis without bleeding (principal); K21.00 Gastro-esophageal reflux disease with esophagitis, without bleeding; R10.13 Epigastric pain
CPT/HCPCS: 88305-TC; 88342-TC